=== PATIENT | female | born 1990 | race Native Hawaiian/Other Pacific Islander ===

== ENCOUNTER 2017-01-31 12:53 | Day surgery (SDC) | payer OTHER ==
[2017-01-31] MEDS ORDERED: LR 1,000 ML IV ONE (13:08)
[2017-01-31] MEDS ORDERED: LIDOCAINE 1% 5 ML SDV ID PRN (13:08)
[2017-01-31] MEDS ORDERED: ceFAZolin 2 GM/DEXTROSE 100 ML IV ONE (13:30)
[2017-01-31] MEDS ORDERED: MIDAZOLAM 2 MG/2 ML VIAL ONE (14:10)
[2017-01-31] MEDS ORDERED: LIDOCAINE 2% 5 ML SDV ONE (14:18)
[2017-01-31] MEDS ORDERED: PROPOFOL 200 MG/20 ML VIAL ONE (14:18)
[2017-01-31] MEDS ORDERED: fentaNYL 100 MCG/2 ML INJ ONE (14:18)
[2017-01-31] MEDS ORDERED: ONDANSETRON 4 MG/2 ML VIAL ONE (14:31)
[2017-01-31] MEDS ORDERED: DEXAMETHASONE 4 MG/ML VIAL ONE (14:31)
[2017-01-31] MEDS ORDERED: KETOROLAC 30 MG/1 ML SDV ONE (14:31)
--- NOTE | 2017-01-31 16:15 | GOP ---
[f rep st] OPERATIVE REPORT DATE OF OPERATION: SURGEON: Sarai Higgins MD PREOPERATIVE DIAGNOSIS: Embedded (in myometrium) ParaGard intrauterine device. POSTOPERATIVE DIAGNOSIS: Embedded (in myometrium) ParaGard intrauterine device. PROCEDURE PERFORMED: Hysteroscopy with removal of embedded intrauterine device. FINDINGS: Normal endometrial cavity. ParaGard IUD embedded in myometrium. ESTIMATED BLOOD LOSS: 30 cc. DESCRIPTION OF PROCEDURE: The patient gave informed consent, and she was taken to the operating room. She was given 2 g of IV Ancef. Antibiotic are not generally needed for hysteroscopy, but the patient had a lot of manipulation when I attempted to remove the IUD in the office. Therefore, we gave her prophylactic antibiotics. The patient was placed in supine position and administered anesthesia. Her legs were placed in Kareem stirrups. She was prepped and draped in the usual sterile fashion. A red Perez was used to drain the bladder; 30 cc of urine was drained. A pelvic exam revealed an anteverted uterus that was normal in shape and contour and no adnexal masses. An open-sided speculum was introduced into the vagina, and the cervix was examined. It appeared normal without lesions. Next, we performed hysteroscopy using the operative Rocha and Nephew scope. A fine-tooth tenaculum was placed on the anterior lip of the cervix. The uterus sounded to 8 cm, and the cervix was serially dilated to 9.5. Then, the Rocha and Nephew scope was inserted, and a couple of photographs were taken. The interior of the uterus appeared entirely normal with some fluffy endometrium. The IUD was seen on the anterior superior aspect of the uterus, somewhat distorted, with one arm into the myometrium. A grasper was used through the operating channel of the scope, and the IUD was removed intact without difficulty. The case was terminated. The vaginal instruments were removed, and the cervix was inspected. There was no bleeding. The patient was awoken and taken to the recovery room in stable condition. COMPLICATIONS: None. /[id number]/MODL MTDD
== END 2017-01-31 17:00 | disposition home or self-care (01) ==
LOC: FSGY 12:53
PROVIDERS: ATTEND Obstetrics & Gynecology
PROC: 0UPD8HZ Removal of Contraceptive Device from Uterus and Cervix, Via Natural or Artificial Opening Endoscopic (ICD-10-PCS; principal; 2017-01-31 14:15)
DX: T83.39XA Other mechanical complication of intrauterine contraceptive device, initial encounter (principal)
CPT/HCPCS: J0690; J1100; J1885; J2250; J2405; J2704; J3010